=== PATIENT | male | born 1965 | race Caucasian/White ===

== ENCOUNTER 2016-11-16 20:23 | Emergency (ER) | payer MEDICARE ==
[~2016-11-16] VITALS: Ht 185.4 cm; Wt 68.0 kg
[~2016-11-16 20:23] MED LIST: SULF1TAB24 PO; TRAM-29 PO
[2016-11-16 21:52] LABS: BARBITURATES NEG (NEG); BENZODIAZEPINES NEG (NEG); CANNABINOIDS NEG (NEG); COCAINE POS (NEG); ETHANOL, URINE NEG (NEG); METHADONE NEG (NEG); OPIATES NEG (NEG); PHENCYCLIDINE NEG (NEG)
[2016-11-16 22:42] LABS: BASO # 0.1 x10^3/uL (0.0-0.2); BASO % 1 % (0-3); EOS % 4 % (0-3); HEMATOCRIT 34.6 % (39.0-53.0); HEMOGLOBIN 11.7 g/dL (13.0-17.5); LYMPH # 1.8 x10^3/uL (1.0-4.8); LYMPH % 19 % (24-48); MEAN CORPUSCULAR HEMOGLOBIN 30 pg (25-35); MEAN CORPUSCULAR HGB CONC 34 g/dL (31-37); MEAN CORPUSCULAR VOLUME 88 fL (79-100); MONO % 9 % (0-9); NEUT % 67 % (31-73); PLATELET COUNT 246 x10^3/uL (140-400); RED BLOOD COUNT 3.92 x10^6/uL (4.30-5.70); RED CELL DISTRIBUTION WIDTH 14.8 % (11.5-14.5); WHITE BLOOD COUNT 9.5 x10^3/uL (4.0-11.0)
[2016-11-16 23:02] VITALS: BP 110/65
[2016-11-16 23:06] LABS: CALCIUM 8.5 mg/dL (8.5-10.1); CREATININE 0.8 mg/dL (0.7-1.3); GFR 101.5; POTASSIUM 3.9 mmol/L (3.5-5.1)
[2016-11-16] MEDS ORDERED: KETOROLAC TROMETHAMINE 60 MG/2 ML SYRINGE. IM ONE (23:15)
[2016-11-17] MEDS ORDERED: IBUP-1060 PO (00:06)
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
--- NOTE | 2016-11-17 06:38 | EKG ---
[facility] [address] [place] [address] Test Date: 2016-11-16 Test Time: 22:34:41 Pat Name: TAYA ALEX Department: Room: Gender: M Electronics Research Engineer: : 1965 Requested By: JONNATHAN MUÑOZ Order Number: [id number] Reading MD: Measurements Intervals Brethren Rate: 59 P: 42 NE: 166 QRS: 82 QRSD: 106 T: 22 QT: 444 QTc: 440 Interpretive Statements SINUS RHYTHM RI6.01 Unconfirmed report No previous ECG available for comparison
== END 2016-11-17 00:29 | disposition home or self-care (01) ==
LOC: ER 20:23
DX: M54.5 Low back pain (principal); F15.10 Other stimulant abuse, uncomplicated; F14.10 Cocaine abuse, uncomplicated; F20.9 Schizophrenia, unspecified; Z88.0 Allergy status to penicillin
CPT/HCPCS: 36415; 80048; 85027; 93005; 99285; G0480; G0481

== ENCOUNTER 2016-11-30 05:42 | Emergency (ER) | payer MEDICARE ==
[~2016-11-30] VITALS: Ht 180.3 cm; Wt 68.0 kg
[~2016-11-30 05:42] MED LIST changes: +IBUP-1060 PO
[2016-11-30 06:01] VITALS: BP 121/94
[2016-11-30] MEDS ORDERED: CYCL10TA2 PO (06:29)
[2016-11-30] MEDS ORDERED: NAPR375T3 PO (06:29)
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
[2016-11-30] MEDS ORDERED: KETOROLAC TROMETHAMINE 60 MG/2 ML SYRINGE. IM ONE (07:00)
[2016-11-30] MEDS ORDERED: KETOROLAC TROMETHAMINE 30 MG/ML SYRINGE. IM ONE (07:00)
== END 2016-11-30 07:11 | disposition home or self-care (01) ==
LOC: ER 05:42
DX: M54.5 Low back pain (principal); M54.2 Cervicalgia; G89.29 Other chronic pain; F20.9 Schizophrenia, unspecified; F15.10 Other stimulant abuse, uncomplicated; F14.10 Cocaine abuse, uncomplicated; Z88.0 Allergy status to penicillin
CPT/HCPCS: 96372; 99283; J1885

== ENCOUNTER 2017-05-11 14:55 | Emergency (ER) | payer MEDICARE ==
[~2017-05-11] VITALS: Ht 185.4 cm; Wt 72.6 kg
[~2017-05-11 14:55] MED LIST changes: +CYCL10TA2 PO; +NAPR375T3 PO; -TRAM-29 PO; +TRAM-48 PO
[2017-05-11 15:22] VITALS: BP 145/68
[2017-05-11] MEDS ORDERED: HALO10TA PO (17:02)
[2017-05-11] MEDS ORDERED: RISP1TAB43 PO (17:02)
[2017-05-11] MEDS ORDERED: QUET50TA5 PO (17:03)
--- NOTE | 2017-05-11 17:03 | PHYS DOC ---
Past Medical History Past Medical History: Schizophrenia Past Surgical History: No Surgical History Alcohol Use: Occasionally Drug Use: Amphetamine, Cocaine, Methamphetamine Social History Narrative: clean x 2-3 months Adult General Chief Complaint Chief Complaint: PSYCH EVALUATION HPI HPI Patient is a 51 year old male with history of homelessness, chronic psychosis who presents with right medial forefoot pain times one month. Patient has a partially healing laceration to his right medial forefoot. He does not recall cause of injury. Denies foreign body sensation. The wound is closed and mostly healed without evidence of infection. Patient is also requesting medication refill. Patient takes Seroquel, Risperdal and Haldol has been off medications for 1-1/2 months. He denies SI, HI, hallucinations and delusions. No other acute symptoms or complaints. Patient is a current smoker, denies alcohol and substance abuse. Review of Systems Review of Systems Review symptoms as per history of present illness. All other review symptoms are negative. Allergies Allergies Allergies Coded Allergies Type Severity Reaction Last Updated Verified Penicillins Allergy Intermediate SEIZURE 06/25/16 Yes Physical Exam Physical Exam Constitutional: Well developed, unkempt, poor hygiene [] HENT: Normocephalic, atraumatic, bilateral external ears normal, oropharynx moist, no oral exudates, nose normal. [] Eyes: PERRLA, EOMI, conjunctiva normal, no discharge. [] Neck: Normal range of motion, no tenderness, supple, no stridor. [] Cardiovascular:Heart rate regular rhythm, no murmur [] Lungs & Thorax: Bilateral breath sounds clear to auscultation [] Abdomen: Bowel sounds normal, soft, no tenderness, no masses, no pulsatile masses. [] Skin: Warm, dry, no erythema, no rash. [] Back: No tenderness, no CVA tenderness. [] Extremities: Right forefoot, partially healed laceration right medial forefoot without evidence of infection or palpable foreign body minimal soft tissue tenderness. [] Neurologic: Alert and oriented X 3, normal motor function, normal sensory function, no focal deficits noted. [] Psychologic: Affect normal, no HI/SI/hallucinations, paranoia or delusions [] Current Patient Data Vital Signs Vital Signs Date Time Temp Pulse Resp B/P (MAP) Pulse Ox O2 Delivery O2 Flow Rate FiO2 05/11/17 15:22 98.4 70 18 145/68 (93) 98 Room Air 98.4 EKG EKG [] Radiology/Procedures Radiology/Procedures [X-ray right foot: No evidence of foreign body] Course & Med Decision Making Course & Med Decision Making Pertinent Labs and Imaging studies reviewed. (See chart for details) [Patient initially presented with chronic right foot pain. No evidence of infection or retained foreign body. Patient is homeless and suspect symptoms are largely related to walking on feet all day. In the ED, patient did request occasion refill for his psychiatric medications. Courtesy refill provided for Risperdal, Seroquel and Haldol until specified by patient. [facility] have [facility] for follow-up and is agreeable to ER discharge and follow-up plan.] Dragon Disclaimer Dragon Disclaimer This electronic medical record was generated, in whole or in part, using a voice recognition dictation system. Departure Departure Impression: Primary Impression: Foot pain, right Additional Impression: Medication refill Disposition: 01 HOME, SELF-CARE Condition: LEFT WITHOUT BEING SEEN Referrals: NO PCP (PCP) Additional Instructions: Please refill Risperdal and Seroquel and Haldol prescriptions and take medications only as prescribed. Take 650 mg of Tylenol 3 times daily for right foot pain and wear tow pair of clean socks with shoes. Follow up with community mental health services. Problem Qualifiers BRANDON ESCAMILLA DO May 11, 2017 17:03
--- NOTE | 2017-05-12 08:30 | RAD ---
Exam performed: Right foot 3 views. Clinical Indication: Trauma, puncture wound and laceration on the plantar surface of the foot. Date of Service:05/11/17. Comparison :No priors Findings: PA, oblique and lateral radiographs of the foot reveal the osseous structures to be intact and well aligned. The joint spaces are well preserved and the articular margins are smooth. Impression: Radiographically normal osseous structures of the right foot.
== END 2017-05-11 17:27 | disposition home or self-care (01) ==
LOC: ER 14:55
DX: M79.671 Pain in right foot (principal); Z76.0 Encounter for issue of repeat prescription; F20.9 Schizophrenia, unspecified; Z88.0 Allergy status to penicillin
CPT/HCPCS: 73630; 99284

== ENCOUNTER 2017-05-11 22:43 | Emergency (ER) | payer MEDICARE ==
[~2017-05-11] VITALS: Ht 188 cm; Wt 72.6 kg
[~2017-05-11 22:43] MED LIST changes: +HALO10TA PO; +QUET50TA5 PO; +RISP1TAB43 PO
[2017-05-11 22:58] VITALS: BP 137/67
--- NOTE | 2017-05-11 23:08 | PHYS DOC ---
Past Medical History Past Medical History: Schizophrenia Past Surgical History: No Surgical History Alcohol Use: Occasionally Drug Use: Amphetamine, Cocaine, Methamphetamine Adult General Chief Complaint Chief Complaint: LACERATION/AVULSION [facility] HPI Patient is a 51 year old male presents to the emergency department with complaints of dry cracked feet. Patient states that he has dry skin and cracking skin on the bottom of his right foot. He states it's worse since he has had to wear his shoes at work. He states she is but is waiting for payday. He is in the emergency department today seeking a "salve, Band-Aid and some Tylenol". Review of Systems Review of Systems Constitutional: Denies fever or chills [] Eyes: Denies change in visual acuity, redness, or eye pain [] HENT: Denies nasal congestion or sore throat [] Respiratory: Denies cough or shortness of breath [] Cardiovascular: No additional information not addressed in HPI [] GI: Denies abdominal pain, nausea, vomiting, bloody stools or diarrhea [] : Denies dysuria or hematuria [] Musculoskeletal: Denies back pain or joint pain [] Integument: Dry skin with fissure Neurologic: Denies headache, focal weakness or sensory changes [] Endocrine: Denies polyuria or polydipsia [] Allergies Allergies Allergies Coded Allergies Type Severity Reaction Last Updated Verified Penicillins Allergy Intermediate SEIZURE 06/25/16 Yes Physical Exam Physical Exam Constitutional: Well developed, well nourished, no acute distress, non-toxic appearance. [] Cardiovascular:Heart rate regular rhythm, no murmur [] Lungs & Thorax: Bilateral breath sounds clear to auscultation [] Skin: Warm, dry, no erythema, no rash. Right foot, plantar aspect, beneath the fifth toe, 2 cm superficial fissure. There is no surrounding erythema. No discharge from the wound. Is nontender to palpate. [] Extremities: No tenderness, no cyanosis, no clubbing, ROM intact, no edema. [] Neurologic: Alert and oriented X 3, normal motor function, normal sensory function, no focal deficits noted. [] Psychologic: Affect normal, judgement normal, mood normal. [] EKG EKG [] Radiology/Procedures Radiology/Procedures [] Course & Med Decision Making Course & Med Decision Making Pertinent Labs and Imaging studies reviewed. (See chart for details) [] Dragon Disclaimer Dragon Disclaimer This electronic medical record was generated, in whole or in part, using a voice recognition dictation system. Departure Departure Impression: Primary Impression: Fissure in skin of foot Disposition: 01 HOME, SELF-CARE Condition: STABLE Referrals: NO PCP (PCP) [facility] Patient Instructions: Skin Tear Care, Wound Care, [id number] Additional Instructions: Keep area clean and dry. Neosporin [id number] as needed. Tylenol and/or Motrin as labeled and is indicated for symptom management. WAYNE MULLER SURVEYOR MINE May 11, 2017 23:08
[2017-05-11] MEDS ORDERED: ACETAMINOPHEN 500 MG TABLET PO ONE (23:15)
[2017-05-11] MEDS ORDERED: NEOMY/BACITR/POLYMYXIN OINT PACKET. TP ONE (23:15)
== END 2017-05-11 23:54 | disposition home or self-care (01) ==
LOC: ER 22:43
DX: R23.4 Changes in skin texture (principal); F20.9 Schizophrenia, unspecified; Z88.0 Allergy status to penicillin
CPT/HCPCS: 99283

== ENCOUNTER 2017-06-06 23:16 | Emergency (ER) | payer MEDICARE ==
[~2017-06-06 23:16] MED LIST changes: +NAPR-695 PO; -NAPR375T3 PO
== END 2017-06-06 23:32 | disposition left against medical advice (07) ==
LOC: ER 23:16
DX: M79.673 Pain in unspecified foot (principal); Z88.0 Allergy status to penicillin; Z53.21 Procedure and treatment not carried out due to patient leaving prior to being seen by health care provider

== ENCOUNTER 2017-08-07 10:54 | Emergency (ER) | payer MEDICARE ==
[~2017-08-07] VITALS: Ht 175.3 cm; Wt 72.6 kg
[2017-08-07 10:54] VITALS: BP 149/94
[2017-08-07] MEDS ORDERED: QUET50TA5 PO ×2 (11:02→11:27)
[2017-08-07] MEDS ORDERED: RISP1TAB43 PO (11:02)
[2017-08-07] MEDS ORDERED: risperiDONE 1 MG TABLET. PO STA (11:12)
[2017-08-07] MEDS ORDERED: traZODone 50 MG TABLET. PO STA (11:12)
--- NOTE | 2017-08-07 11:12 | PHYS DOC ---
Past Medical History Past Medical History: Schizophrenia Past Surgical History: No Surgical History Alcohol Use: None Drug Use: None Adult General Chief Complaint Chief Complaint: MEDICATION REFILL HPI HPI Patient is a 51 year old male with history of schizophrenia who presents today requesting medication to take home with him. Patient states he takes 1 mg of Risperdal and 50 mg of Seroquel at night. He states he has been out of the both medications for 4 months but would like to get back on the medications today. He is requesting 4 day supply of the medication from the hospital stating he can not afford to buy the medications until Wednesday which is four days out. Denies any suicidal or homicidal ideation. Review of Systems Review of Systems Constitutional: Denies fever or chills [] Eyes: Denies change in visual acuity, redness, or eye pain [] HENT: Denies nasal congestion or sore throat [] Respiratory: Denies cough or shortness of breath [] Cardiovascular: No additional information not addressed in HPI [] GI: Denies abdominal pain, nausea, vomiting, bloody stools or diarrhea [] : Denies dysuria or hematuria [] Musculoskeletal: Denies back pain or joint pain [] Integument: Denies rash or skin lesions [] Neurologic: Denies headache, focal weakness or sensory changes [] Psych: hx of schizophrenia. All other systems were reviewed and found to be within normal limits, except as documented in this note. Allergies Allergies Allergies Coded Allergies Type Severity Reaction Last Updated Verified Penicillins Allergy Intermediate SEIZURE 06/25/16 Yes Physical Exam Physical Exam Constitutional: Well developed, well nourished, no acute distress, non-toxic appearance. [] HENT: Normocephalic, atraumatic, bilateral external ears normal, oropharynx moist, no oral exudates, nose normal. [] Eyes: PERRLA, EOMI, conjunctiva normal, no discharge. [] Neck: Normal range of motion, no tenderness, supple, no stridor. [] Cardiovascular:Heart rate regular rhythm, no murmur [] Lungs & Thorax: Bilateral breath sounds clear to auscultation [] Abdomen: Bowel sounds normal, soft, no tenderness, no masses, no pulsatile masses. [] Skin: Warm, dry, no erythema, no rash. [] Back: No tenderness, no CVA tenderness. [] Extremities: No tenderness, no cyanosis, no clubbing, ROM intact, no edema. [] Neurologic: Alert and oriented X 3, normal motor function, normal sensory function, no focal deficits noted. [] Psychologic: Affect normal, judgement normal, mood normal. [] Current Patient Data Vital Signs Vital Signs Date Time Temp Pulse Resp B/P (MAP) Pulse Ox O2 Delivery O2 Flow Rate FiO2 08/07/17 10:54 98.1 83 16 149/94 (112) 98 Room Air 98.1 EKG EKG [] Radiology/Procedures Radiology/Procedures [] Course & Med Decision Making Course & Med Decision Making Pertinent Labs and Imaging studies reviewed. (See chart for details) This is a 51-year-old male patient presenting to the ED today requesting 1 mg of Risperdal and 50 mg of Seroquel four day supply from the hospital. Patient has not taken these medications for the last 4 months but states he would like to get back on the medications. Patient denies any suicidal homicidal ideations I called our pharmacy, they stated they cannot dispense medications for home use because this is direct competition with retail pharmacies and they're not allowed to be in competition with retail pharmacies hence they can not dispense the medication. Prescription was given to patient. He was encouraged to follow up with [facility]. Inna Disclaimer Inna Disclaimer This electronic medical record was generated, in whole or in part, using a voice recognition dictation system. Departure Departure Impression: Primary Impression: Medication refill Disposition: HOME, SELF-CARE Condition: STABLE Referrals: NO PCP (PCP) Contact [facility] on Wednesday and follow up [phone] Patient Instructions: Schizophrenia Additional Instructions: You were seen with a request for medication refill for Seroquel and trazodone. Our hospital pharmacy cannot dispense these medications for home use due to rules and regulations governing hospital pharmacies. We wrote you 2 prescriptions try and find money to buy the medications. Also follow-up with [facility] on Wednesday. Scripts Quetiapine Fumarate (SEROQUEL) 50 Mg Tablet 1 TAB PO QHS, #7 TAB Prov: MUTUNGA,JAYNE CHASSIS MECHANIC 08/07/17 Risperidone (RISPERIDONE) 1 Mg Tablet 1 TAB PO QHS, #7 TAB 0 Refills Prov: MUTUNGA,JAYNE CHASSIS MECHANIC 08/07/17 JAYNE NAJERA CHASSIS MECHANIC Aug 07, 2017 11:12
[2017-08-07] MEDS ORDERED: RISP1TAB3 PO (11:27)
== END 2017-08-07 11:37 | disposition home or self-care (01) ==
LOC: ER 10:54
DX: Z76.0 Encounter for issue of repeat prescription (principal); F20.9 Schizophrenia, unspecified; Z88.0 Allergy status to penicillin
CPT/HCPCS: 99283

== ENCOUNTER 2017-08-12 19:17 | Emergency (ER) | payer MEDICARE ==
[2017-08-12 19:17] VITALS: BP 124/72
[~2017-08-12 19:17] MED LIST changes: +RISP1TAB3 PO
--- NOTE | 2017-08-12 19:25 | PHYS DOC ---
Past Medical History Past Medical History: Schizophrenia Additional Past Medical Histor: CHRONIC NECK/BACK PAIN Past Surgical History: Other Additional Past Surgical Histo: L LEG Alcohol Use: Occasionally Drug Use: None Adult General Chief Complaint Chief Complaint: HEADACHE HPI HPI The patient presented by EMS. RN initiated triage process & he eloped from the department. Before I could evaluate the patient myself, I was informed that he had departed from the premises. I did not interact with him, obtain history, or perform exam. Allergies Allergies Allergies Coded Allergies Type Severity Reaction Last Updated Verified Penicillins Allergy Intermediate SEIZURE 06/25/16 Yes EKG EKG [] Radiology/Procedures Radiology/Procedures [] Course & Med Decision Making Course & Med Decision Making Pertinent Labs and Imaging studies reviewed. (See chart for details) [] Dragon Disclaimer Dragon Disclaimer This electronic medical record was generated, in whole or in part, using a voice recognition dictation system. Departure Departure Disposition: 01 LEFT WITHOUT BEING SEEN Referrals: NO PCP (PCP) ORLIN AMBRIZ MD Aug 12, 2017 19:25
== END 2017-08-12 19:38 | disposition left against medical advice (07) ==
LOC: ER 19:17
DX: R51 Headache (principal); G89.29 Other chronic pain; F20.9 Schizophrenia, unspecified; Z53.21 Procedure and treatment not carried out due to patient leaving prior to being seen by health care provider; Z88.0 Allergy status to penicillin

== ENCOUNTER 2017-09-21 06:52 | Emergency (ER) | payer MEDICARE ==
[2017-09-21] MEDS: IBUPROFEN 800 MG TABLET. PO (07:49)
[2017-09-21 08:04] LABS: NEGATIVE OBC STREP NEG; POSITIVE OBC STREP POS
[2017-09-21 08:10] LABS: INFLUENZA A PATIENT NEGATIVE (NEGATIVE); INFLUENZA B PATIENT NEGATIVE (NEGATIVE); OBC FLU VALID
[2017-09-21 08:38] LABS: BILIRUBIN,URINE NEGATIVE (NEG); CLARITY,URINE CLEAR; COLOR,URINE YELLOW; GLUCOSE,URINE NEGATIVE (NEG); NITRITE,URINE NEGATIVE (NEG); PROTEIN,URINE NEGATIVE (NEG-TRACE)
[2017-09-21 08:51] LABS: BACTERIA,URINE FEW /HPF (0-FEW)
[2017-09-21 08:52] LABS: RBC,URINE OCC /HPF (0-2)
== END 2017-09-21 09:46 | disposition home or self-care (01) ==
LOC: ER 06:52
DX: J06.9 Acute upper respiratory infection, unspecified (principal); M54.9 Dorsalgia, unspecified; G89.29 Other chronic pain; Z88.0 Allergy status to penicillin
CPT/HCPCS: 81001; 87070; 87804; 87804-59; 87880; 99284

== ENCOUNTER 2017-10-01 20:30 | Emergency (ER) | payer MEDICARE ==
[2017-10-01] MEDS: IPRATRPIUM/ALBUTEROL 0.5/2.5MG 3 ML NEBU. NEB (21:27)
[2017-10-01] MEDS: predniSONE 20 MG TABLET PO (21:30)
[2017-10-01] MEDS: CIPROFLOXACIN HCL 250 MG TABLET. PO (21:30)
[2017-10-01 22:01] LABS: INFLUENZA A PATIENT NEGATIVE (NEGATIVE); INFLUENZA B PATIENT NEGATIVE (NEGATIVE); OBC FLU VALID
== END 2017-10-01 22:37 | disposition home or self-care (01) ==
LOC: ER 20:30
DX: J40 Bronchitis, not specified as acute or chronic (principal); F17.210 Nicotine dependence, cigarettes, uncomplicated; F20.9 Schizophrenia, unspecified; I10 Essential (primary) hypertension; G89.29 Other chronic pain; Z88.0 Allergy status to penicillin
CPT/HCPCS: 71046; 87804; 87804-59; 93005; 94640; 99285-25; J7512; J7620

== ENCOUNTER 2017-12-20 19:24 | Emergency (ER) | payer MEDICARE | END 2017-12-20 20:40 | disposition home or self-care (01) | LOC: ER 20:40 | DX: F15.10 Other stimulant abuse, uncomplicated (principal); F14.10 Cocaine abuse, uncomplicated; F20.9 Schizophrenia, unspecified; I10 Essential (primary) hypertension; F17.210 Nicotine dependence, cigarettes, uncomplicated; Z88.0 Allergy status to penicillin | CPT/HCPCS: 99284 ==

== ENCOUNTER 2018-06-02 23:12 | Emergency (ER) | payer MEDICARE ==
[~2018-06-02] VITALS: Ht 185.4 cm; Wt 72.6 kg
[~2018-06-02 23:12] MED LIST changes: +AZIT250T6 PO; +GUAI600T47 PO; +PRED20TA PO; +PROAIR HFA8.5 GM INH
[2018-06-02 23:45] VITALS: BP 130/74
[2018-06-03] MEDS ORDERED: TOLNAFTATE 1% TOPICAL SPRAY POWDER 133GM CAN. TP SCH (00:45)
--- NOTE | 2018-06-03 00:49 | PHYS DOC ---
Past Medical History Past Medical History: Hypertension, Schizophrenia, Unknown Additional Past Medical Histor: CHRONIC NECK/BACK PAIN Past Surgical History: Other Additional Past Surgical Histo: unknown Alcohol Use: None Drug Use: None Adult General Chief Complaint Chief Complaint: SKIN RASH/ABSCESS [facility] HPI Patient is a 52 year old male who presents with a rash to bilateral feet. The patient states he is homeless and has not been able to care for his feet. The patient states it isn't itchy rash and he has some cracking noted to the bottom of his feet. The patient also states that he had an injury to his testicles years ago and is requesting Viagra. I explained that I would not be able to prescribed that out of the emergency department. Review of Systems Review of Systems Constitutional: Denies fever or chills [] Respiratory: Denies cough or shortness of breath [] Cardiovascular: No additional information not addressed in HPI [] GI: Denies abdominal pain, nausea, vomiting, bloody stools or diarrhea [] : Denies dysuria or hematuria [] Musculoskeletal: Denies back pain or joint pain [] Integument: See history of present illness Neurologic: Denies headache, focal weakness or sensory changes [] Endocrine: Denies polyuria or polydipsia [] All other systems were reviewed and found to be within normal limits, except as documented in this note. Current Medications Current Medications Current Medications Medications (Trade) Dose Ordered Sig/Haylee Start Time Stop Time Status Last Admin Dose Admin Tolnaftate (Tinactin) 1 shannan BID 06/03/18 00:45 06/03/18 01:06 DC 06/03/18 00:45 1 SHANNAN Allergies Allergies Allergies Coded Allergies Type Severity Reaction Last Updated Verified Penicillins Allergy Intermediate SEIZURE 06/25/16 Yes Physical Exam Physical Exam Constitutional: Well developed, well nourished, no acute distress, non-toxic appearance. [] Cardiovascular:Heart rate regular rhythm, no murmur [] Lungs & Thorax: Bilateral breath sounds clear to auscultation [] Abdomen: Bowel sounds normal, soft, no tenderness, no masses, no pulsatile masses. [] Skin: Erythematous rash with cracking noted to his feet, excoriation noted, no sign of bacterial infection noted Back: No tenderness, no CVA tenderness. [] Extremities: No tenderness, no cyanosis, no clubbing, ROM intact, no edema. [] Neurologic: Alert and oriented X 3, normal motor function, normal sensory function, no focal deficits noted. [] Psychologic: Affect normal, judgement normal, mood normal. [] Current Patient Data Vital Signs Vital Signs Date Time Temp Pulse Resp B/P (MAP) Pulse Ox O2 Delivery O2 Flow Rate FiO2 06/02/18 23:45 98.8 99 18 130/74 (92) 98 Room Air 98.8 EKG EKG [] Radiology/Procedures Radiology/Procedures [] Course & Med Decision Making Course & Med Decision Making Pertinent Labs and Imaging studies reviewed. (See chart for details) []The patient was treated in the emergency department with Tinactin. He is to follow-up with a clinic for further evaluation. Dragon Disclaimer Differential Dynamics Disclaimer This electronic medical record was generated, in whole or in part, using a voice recognition dictation system. Departure Departure Impression: Primary Impression: Athletes foot Disposition: HOME, SELF-CARE Condition: STABLE Referrals: NO PCP (PCP) Patient Instructions: Athlete's Foot Additional Instructions: Follow-up with your primary care provider for further evaluation of your athlete 's foot. You may use [id number] Tinactin to clearing your symptoms. Follow -up with urology for your request for Viagra. Attending Signature Attending Signature I have reviewed the PA/LITHARGE SUPERVISOR's note and plan of care. I was available for consultation as needed during the patient's visit in the emergency department. I agree with the clinical impression, plan, and disposition. MONIQUE CHIRINOS APRN Jun 03, 2018 00:49 MAGDALENO ESQUIVEL DO Jun 05, 2018 03:43
== END 2018-06-03 01:06 | disposition home or self-care (01) ==
LOC: ER 23:12
DX: B35.3 Tinea pedis (principal); I10 Essential (primary) hypertension; F20.9 Schizophrenia, unspecified; G89.29 Other chronic pain; Z88.0 Allergy status to penicillin
CPT/HCPCS: 99282

== ENCOUNTER 2019-08-31 16:37 | Emergency (ER) | payer MEDICARE ==
[~2019-08-31] VITALS: Ht 180.3 cm; Wt 71.7 kg
[~2019-08-31 16:37] MED LIST changes: +ALBU2.5V8 INH; -PROAIR HFA8.5 GM INH
[2019-08-31 16:40] VITALS: BP 132/76
[2019-08-31] MEDS ORDERED: CEPH-264 PO (16:57)
[2019-08-31] MEDS ORDERED: HYDR50TA PO (16:57)
[2019-08-31] MEDS ORDERED: CLOT12CR2 TP (16:57)
--- NOTE | 2019-08-31 17:29 | PHYS DOC ---
Past Medical History Past Medical History: No Pertinent History Additional Past Medical Histor: CHRONIC NECK/BACK PAIN Past Surgical History: No Surgical History Additional Past Surgical Histo: unknown Alcohol Use: Heavy Drug Use: Methamphetamine Adult General Chief Complaint Chief Complaint: HAND PROBLEM HPI HPI Patient is a 53 year old male with history of schizophrenia and homelessness who presents with dermatitis both hands. It isn't clear how long patient has dermatitis. He checked and earlier today with this complaint but ended up le aving the ED to smoke and not returning until this evening. Patient is currently residing at the local homeless assisted. He has had previous hospitalizations of the [facility]. He is currently prescribed Risperdal and Seroquel but is noncompliant with treatment. M, the patient is disheveled, edentulous, with bizarre and disorganized speech. He has dermatitis involving both hands extending to proximal wrist. Numerous punctate abrasions from itching with minimal scaling of skin. There is good cap refill and sensation throughout all digits. He does not be in significant pain, appears to have some discomfort secondary to itching.] Review of Systems Review of Systems ROS as per HPI. All other systems were reviewed and found to be within normal limits, except as documented in this note. Allergies Allergies Allergies Coded Allergies Type Severity Reaction Last Updated Verified Penicillins Allergy Intermediate SEIZURE 06/25/16 Yes Physical Exam Physical Exam Constitutional: Well developed, well nourished, disheveled, covered in glitter[] HENT: Normocephalic, atraumatic, bilateral external ears normal, oropharynx moist, edentulous/ [] Eyes: PERRLA, EOMI, conjunctiva normal, no discharge. [] Neck: Normal range of motion, no tenderness. [] Cardiovascular:Heart rate regular rhythm, no murmur [] Lungs & Thorax: Bilateral breath sounds clear to auscultation [] Abdomen: Bowel sounds normal, soft, no tenderness, no masses, no pulsatile masses. [] Skin: Dermatitis involving both hands extending to proximal wrist. Numerous punctate abrasions from itching with minimal scaling of skin. There is good cap refill and sensation throughout all digits. [] Back: No tenderness, no CVA tenderness. [] Extremities: No tenderness, no cyanosis, no clubbing, ROM intact, no edema. [] Neurologic: Alert and oriented X worsening, normal motor function, normal sensory function, no focal deficits noted. [] Psychologic: Normal behavior and bizarre speech. [] EKG EKG [] Radiology/Procedures Radiology/Procedures [] Course & Med Decision Making Course & Med Decision Making Pertinent Labs and Imaging studies reviewed. (See chart for details) [Hand dermatitis, NOS. Will tx with PCP follow up. ] Dragon Disclaimer Dragon Disclaimer This electronic medical record was generated, in whole or in part, using a voice recognition dictation system. Departure Departure Impression: Primary Impression: Hand dermatitis Disposition: HOME/RESIDENCE PRIOR TO ADM Condition: GOOD Patient Instructions: Hand Dermatitis, [id number] Additional Instructions: Please avoid sleeping outdoors. Apply Lotrimin cream OTC and take oral antibiotics and antihistamine medication as directed. Follow-up with local primary care provider in the next 3-5 days for reevaluation. Scripts Hydroxyzine Hcl (HYDROXYZINE HCL) 50 Mg Tablet 50 MG PO TID, #10 TAB Prov: BRANDON ESCAMILLA DO 08/31/19 Cephalexin (KEFLEX) 500 Mg Capsule 1 CAP PO TID for 10 Days, #30 CAP 0 Refills Prov: BRANDON ESCAMILLA DO 08/31/19 Clotrimazole (LOTRIMIN AF) 12 Gm Cream..g. 1 ARANZA TP BID, #24 GM 1 Refill Prov: BRANDON ESCAMILLA DO 08/31/19 BRANDON ESCAMILLA DO Aug 31, 2019 17:29
== END 2019-08-31 17:19 | disposition home or self-care (01) ==
LOC: ER 16:37
DX: L30.8 Other specified dermatitis (principal); Z59.0 Homelessness; F20.9 Schizophrenia, unspecified; G89.29 Other chronic pain; F10.20 Alcohol dependence, uncomplicated; Y90.9 Presence of alcohol in blood, level not specified; Z88.0 Allergy status to penicillin
CPT/HCPCS: 99283

== ENCOUNTER → 2020-03-26 | Emergency (ER) | payer MEDICARE ==
[~2020-03-26] MED LIST changes: +CEPH-264 PO; +CLOT12CR2 TP; +ERYTHROMYCIN 0.5% OPHTH OINTMENT 1GM TUBE. ONE; +HYDR50TA PO; +LIDOCAINE 1% Multi-Dose 20 ML VIAL. ONE; +LIDOCAINE 1% PF 5 ML VIAL. INJ ONE
--- NOTE | 2020-03-26 18:27 | PHYS DOC ---
Past Medical History Past Medical History: Schizophrenia Additional Past Medical Histor: CHRONIC NECK/BACK PAIN Past Surgical History: No Surgical History Additional Past Surgical Histo: unknown Smoking Status: Current Every Day Smoker Alcohol Use: Heavy Drug Use: Methamphetamine General Adult EDM: Chief Complaint: MULTIPLE COMPLAINTS HPI: HPI: Patient is a 54 year [id number] male presents for evaluation of splinter under his left index finger patient states splinter is been there for the last 2 or 3 days. Patient complains of associated pain and swelling. Review of Systems: Review of Systems: Constitutional: Denies fever or chills. [] Eyes: As it of conjunctivitis HENT: Denies nasal congestion or sore throat. [] Respiratory: Denies cough or shortness of breath. [] Cardiovascular: Denies chest pain or edema. [] GI: Denies abdominal pain, nausea, vomiting, bloody stools or diarrhea. [] : Denies dysuria. [] Musculoskeletal: Denies back pain or joint pain. [] Integument: Positive paronychia positive foreign body in the nail Neurologic: Denies headache, focal weakness or sensory changes. [] Endocrine: Denies polyuria or polydipsia. [] Lymphatic: Denies swollen glands. [] Psychiatric: Denies depression or anxiety. [] Heart Score: Risk Factors: Risk Factors: DM, Current or recent (<one month) smoker, HTN, HLP, family history of CAD, obesity. Risk Scores: Score 0 - 3: 2.5% MACE over next 6 weeks - Discharge Home Score 4 - 6: 20.3% MACE over next 6 weeks - Admit for Clinical Observation Score 7 - 10: 72.7% MACE over next 6 weeks - Early Invasive Strategies Current Medications: Current Medications Medications (Trade) Dose Ordered Sig/Haylee Start Time Stop Time Status Last Admin Dose Admin Erythromycin (Romycin) 1 inch STK-MED ONCE 03/26/20 04:36 03/26/20 13:26 DC Lidocaine HCl (Lidocaine 1% 20ml Vial) 20 ml STK-MED ONCE 03/26/20 03:58 03/26/20 13:25 DC Lidocaine HCl (Xylocaine-Mpf 1% 5ml Vial) 5 ml 1X ONCE 03/26/20 03:45 03/26/20 08:06 DC Allergies: Allergies: Allergies Coded Allergies Type Severity Reaction Last Updated Verified Penicillins Allergy Intermediate SEIZURE 06/25/16 Yes Physical Exam: PE: Constitutional: Well developed, well nourished, no acute distress, non-toxic appearance. [] HENT: Normocephalic, atraumatic, bilateral external ears normal, oropharynx moist, no oral exudates, nose normal. [] Eyes: PERRLA, EOMI, conjunctiva normal, drainage right] Neck: Normal range of motion, no tenderness, supple, no stridor. [] Cardiovascular:Heart rate regular rhythm, no murmur [] Lungs & Thorax: Bilateral breath sounds clear to auscultation [] Abdomen: Bowel sounds normal, soft, no tenderness, no masses, no pulsatile masses. [] Skin: Warm, dry, erythema swelling consistent with a paronychia left index finger. Patient has what appears to be pus under the nail of his index finger there was a wooden splinter just underneath the nail. Back: No tenderness, no CVA tenderness. [] Extremities: No tenderness, no cyanosis, no clubbing, ROM intact, no edema. [] Neurologic: Alert and oriented X 3, normal motor function, normal sensory function, no focal deficits noted. [] Psychologic: Affect normal, judgement normal, mood normal. [] EKG: EKG: [] Radiology/Procedures: Radiology/Procedures: [] Impression: Patient underwent a digital block with lidocaine 1% approximately 5 cc total. Once successful anesthesia was achieved. Clamps were used to remove wooden splinter from under left index finger nail. 11 blade was used to make an incision along the cuticle. Large amount of pus was expressed. Patient tolerated the procedure Course & Med Decision Making: Course & Med Decision Making Pertinent Labs and Imaging studies reviewed. (See chart for details) [] Dragon Disclaimer: Dragon Disclaimer: This electronic medical record was generated, in whole or in part, using a voice recognition dictation system. Departure Departure Impression: Primary Impression: Skin infection Additional Impressions: Conjunctivitis Paronychia Disposition: 01 HOME, SELF-CARE Condition: STABLE Referrals: NO PCP (PCP) Patient Instructions: Conjunctivitis, Chemical, Paronychia Justicifation of Admission Dx: Justifications for Admission: Justification of Admission Dx: N/A ALEXANDRA CLAUDIO DO Mar 26, 2020 18:27
== END ==
LOC: ER 03:32
DX: L03.012 Cellulitis of left finger (principal); L08.9 Local infection of the skin and subcutaneous tissue, unspecified; H10.9 Unspecified conjunctivitis; F20.9 Schizophrenia, unspecified; G89.29 Other chronic pain; F17.200 Nicotine dependence, unspecified, uncomplicated; F19.90 Other psychoactive substance use, unspecified, uncomplicated; F10.10 Alcohol abuse, uncomplicated; Z88.0 Allergy status to penicillin
CPT/HCPCS: 10061; 99284

== ENCOUNTER 2020-04-10 02:39 | Emergency (ER) | payer MEDICARE ==
[~2020-04-10] VITALS: Ht 170.2 cm; Wt 65.0 kg
[~2020-04-10 02:39] MED LIST changes: -ERYTHROMYCIN 0.5% OPHTH OINTMENT 1GM TUBE. ONE; -LIDOCAINE 1% Multi-Dose 20 ML VIAL. ONE; -LIDOCAINE 1% PF 5 ML VIAL. INJ ONE
[2020-04-10 02:50] VITALS: BP 124/64
--- NOTE | 2020-04-10 03:00 | PHYS DOC ---
Past Medical History Past Medical History: Schizophrenia Additional Past Medical Histor: CHRONIC NECK/BACK PAIN Past Surgical History: No Surgical History Additional Past Surgical Histo: unknown Smoking Status: Current Every Day Smoker Alcohol Use: Heavy Drug Use: Methamphetamine General Adult EDM: Chief Complaint: MEDICATION REFILL HPI: HPI: Patient is a 54-year-old male who is homeless who presents looking for a month supply of his psychiatric medication including Seroquel Abilify and lorazepam. He states he does not want psychiatric help he is trying to circumvent the mental health facilities looking for a primary care doctor. He denies any suicidal or homicidal ideation. [] Review of Systems: Review of Systems: Constitutional: Denies fever or chills. [] Eyes: Denies change in visual acuity. [] HENT: Denies nasal congestion or sore throat. [] Respiratory: Denies cough or shortness of breath. [] Cardiovascular: Denies chest pain or edema. [] GI: Denies abdominal pain, nausea, vomiting, bloody stools or diarrhea. [] : Denies dysuria. [] Musculoskeletal: Denies back pain or joint pain. [] Integument: Denies rash. [] Neurologic: Denies headache, focal weakness or sensory changes. [] Endocrine: Denies polyuria or polydipsia. [] Lymphatic: Denies swollen glands. [] Psychiatric: Depression and anxiety. [] Heart Score: Risk Factors: Risk Factors: DM, Current or recent (<one month) smoker, HTN, HLP, family history of CAD, obesity. Risk Scores: Score 0 - 3: 2.5% MACE over next 6 weeks - Discharge Home Score 4 - 6: 20.3% MACE over next 6 weeks - Admit for Clinical Observation Score 7 - 10: 72.7% MACE over next 6 weeks - Early Invasive Strategies Allergies: Allergies: Allergies Coded Allergies Type Severity Reaction Last Updated Verified Penicillins Allergy Intermediate SEIZURE 06/25/16 Yes Physical Exam: PE: Constitutional: Well developed, well nourished, disheveled but no distress [] HENT: Normocephalic, atraumatic, bilateral external ears normal, oropharynx moist, no oral exudates, nose normal. [] Eyes: PERRLA, EOMI, conjunctiva normal, no discharge. [] Neck: Normal range of motion, no tenderness, supple, no stridor. [] Cardiovascular:Heart rate regular rhythm, no murmur [] Lungs & Thorax: Bilateral breath sounds clear to auscultation [] Abdomen: Bowel sounds normal, soft, no tenderness, no masses, no pulsatile masses. [] Skin: Warm, dry, no erythema, no rash. [] Back: No tenderness, no CVA tenderness. [] Extremities: No tenderness, no cyanosis, no clubbing, ROM intact, no edema. [] Neurologic: Alert and oriented X 3, normal motor function, normal sensory function, no focal deficits noted. [] Psychologic: Very unusual affect [] EKG: EKG: [] Radiology/Procedures: Radiology/Procedures: [] Course & Med Decision Making: Course & Med Decision Making Pertinent Labs and Imaging studies reviewed. (See chart for details) [ED course: Evaluation reveals a 54-year-old male that wants his psychiatric medications refilled. I offered to call the psychiatric assessment team however the patient refused to be evaluated by the psychiatric assessment team and said he would rather go home. He is not a threat to himself or others so I believe this is the best option at this time. Patient states that he has the appropria te resources to find psychiatric care if he decides that is what he wants to do.] Dragon Disclaimer: Inna Disclaimer: This electronic medical record was generated, in whole or in part, using a voice recognition dictation system. Departure Departure Impression: Primary Impression: Mixed anxiety and depressive disorder Disposition: 01 HOME, SELF-CARE Condition: STABLE Referrals: NO PCP (PCP) Patient Instructions: Anxiety and Panic Attacks Justicifation of Admission Dx: Justifications for Admission: Justification of Admission Dx: GENE Berrios DO Apr 10, 2020 03:00
== END 2020-04-10 03:10 | disposition home or self-care (01) ==
LOC: ER 02:39
DX: F41.8 Other specified anxiety disorders (principal); F32.9 Major depressive disorder, single episode, unspecified; F20.9 Schizophrenia, unspecified; G89.29 Other chronic pain; F17.200 Nicotine dependence, unspecified, uncomplicated; F10.10 Alcohol abuse, uncomplicated; F19.90 Other psychoactive substance use, unspecified, uncomplicated; Z59.0 Homelessness
CPT/HCPCS: 99281

== ENCOUNTER 2020-04-21 07:49 | Emergency (ER) | payer MEDICARE ==
[~2020-04-21] VITALS: Ht 182.9 cm; Wt 86.3 kg
[2020-04-21 08:23] VITALS: BP 139/80
[2020-04-21] MEDS ORDERED: IBUP-1007 PO (08:27)
[2020-04-21] MEDS ORDERED: SULF1TAB24 PO (08:27)
--- NOTE | 2020-04-21 08:27 | PHYS DOC ---
Past Medical History Past Medical History: No Pertinent History Additional Past Medical Histor: PATIENT DID NOT STAY LONG ENOUGH TO GET COMPLETE HISTORY Past Surgical History: No Surgical History Additional Past Surgical Histo: unknown Smoking Status: Unknown if ever smoked Alcohol Use: None Drug Use: Methamphetamine General Adult EDM: Chief Complaint: KNEE INJURY HPI: HPI: Patient is a 54 year old male who presents with a 2-day history of right knee pain. Patient denies any trauma to the area. Patient says there is redness associated to the kneecap area. Of note patient is homeless. Patient says the pain is throbbing and moderate in intensity at rest and severe with palpation. Patient denies any fever. Patient also complains of multiple bug bites to the bilateral lower extremities. Review of Systems: Review of Systems: Constitutional: Denies fever or chills. [] Eyes: Denies change in visual acuity. [] HENT: Denies nasal congestion or sore throat. [] Respiratory: Denies cough or shortness of breath. [] Cardiovascular: Denies chest pain or edema. [] GI: Denies abdominal pain, nausea, vomiting, bloody stools or diarrhea. [] : Denies dysuria. [] Musculoskeletal: Denies back pain but has superficial right knee pain Integument: Complains of bites to bilateral lower extremities and redness to the right knee Neurologic: Denies headache, focal weakness or sensory changes. [] Endocrine: Denies polyuria or polydipsia. [] Lymphatic: Denies swollen glands. [] Psychiatric: Denies depression or anxiety. [] Heart Score: Risk Factors: Risk Factors: DM, Current or recent (<one month) smoker, HTN, HLP, family history of CAD, obesity. Risk Scores: Score 0 - 3: 2.5% MACE over next 6 weeks - Discharge Home Score 4 - 6: 20.3% MACE over next 6 weeks - Admit for Clinical Observation Score 7 - 10: 72.7% MACE over next 6 weeks - Early Invasive Strategies Current Medications: Current Medications Medications (Trade) Dose Ordered Sig/Haylee Start Time Stop Time Status Last Admin Dose Admin Ibuprofen (Motrin) 600 mg 1X ONCE 04/21/20 08:30 8 08:31 UNV Trimethoprim/ Sulfamethoxazole (Bactrim Ds) 1 tab 1X ONCE 04/21/20 08:30 04/21/20 08:31 UNV Allergies: Allergies: Allergies Coded Allergies Type Severity Reaction Last Updated Verified Penicillins Allergy Intermediate SEIZURE 06/25/16 Yes Physical Exam: PE: Constitutional: Disheveled alert oriented HENT: Normocephalic, atraumatic, bilateral external ears normal, no trismus, nose normal. [] Eyes: PERRLA, EOMI, conjunctiva normal, no discharge. [] Neck: Normal range of motion, no tenderness, supple, no stridor. [] Cardiovascular:Heart rate regular rhythm, peripheral pulses intact cap refill br isk Lungs & Thorax: Bilateral breath sounds clear, no respiratory distress Abdomen: Not distended, Skin: Multiple bug bites without signs of superinfection of bilateral lower extremities. Back: No tenderness, no CVA tenderness. [] Extremities: Right knee with full range of motion approximately nickel sized superficial abscess on the anterior right knee. Minimal purulent drainage. Minimal surrounding erythema. No joint effusion neurovascular intact distally Neurologic: Alert and oriented X 3, normal motor function, normal sensory function, no focal deficits noted. [] Psychologic: Affect normal, judgement normal, mood normal. [] EKG: EKG: [] Radiology/Procedures: Radiology/Procedures: [] Course & Med Decision Making: Course & Med Decision Making Pertinent Labs and Imaging studies reviewed. (See chart for details) [] 54-year-old male with superficial right knee abscess. The wound is already draining a little bit. I I was able to express a small amount of clots. There is no evidence of joint effusion this appears to be a superficial infection is not represent a septic joint. Will place patient on antibiotics as I did not feel like incision and drainage at this time is warranted. I told the patient if he gets worse he will need to come back for that. Inna Disclaimer: Inna Disclaimer: This electronic medical record was generated, in whole or in part, using a voice recognition dictation system. Departure Departure Impression: Primary Impression: Cutaneous abscess of right knee Disposition: 01 HOME, SELF-CARE Condition: STABLE Referrals: NO PCP (PCP) PCP 2-3 DAYS Patient Instructions: Abscess Additional Instructions: EMERGENCY DEPARTMENT GENERAL DISCHARGE INSTRUCTIONS THANK YOU for coming to [facility] Emergency Department (ED) today and trusting us with your care. We trust that you had a positive experience in our Emergency Department. If you wish to speak to the department Management you can contact the glazing department supervisor at . YOUR FOLLOW UP INSTRUCTIONS ARE FOLLOWS: Do you have a private doctor? If you do not have a private doctor, please ask for a resource list of physicians or clinics that may be able to assist you with follow up care. The Emergency Physician has interpreted your x-rays. The X-ray specialist will also review them. If there is a change in the findings you will be notified in 48 hours when at all possible. A lab test or lab culture may have been done, your results will be reviewed and you will be notified if you need a change in treatment. ADDITIONAL INSTRUCTIONS AND INFORMATION Your care today has been supervised by a physician who is specially trained in emergency care. Many problems require more than one evaluation for a complete diagnosis and treatment. We recommend that you schedule your follow up appointment as recommended to ensure complete treatment of your illness or injury. If you are unable to obtain follow up care and continue to have a problem, or if your condition worsens we recommend that you return to the ED. We are not able to safely determine your condition over the phone nor are we able to give sound medical advice over the phone. For these safety reasons, if you call for medical advice we will ask you to come to the ED for further evaluation If you have any questions regarding these discharge instructions please call the ED at . SAFETY INFORMATION In the interest of safety, wellness, and injury prevention; we encourage you to wear your seatbelt, if you smoke; quit smoking, and we encourage your family to use protective helmet for bicycling and other sporting events that present an increased risk for head injury. IF YOUR SYMPTOMS WORSEN OR NEW SYMPTOMS DEVELOP, OR YOU HAVE CONCERNS ABOUT YOUR CONDITION; OR IF YOUR CONDITION WORSENS WHILE YOU ARE WAITING FOR YOUR FOLLOW UP APPOINTMEN T; EITHER CONTACT YOUR PRIMARY CARE DOCTOR, THE PHYSICIAN WHOSE NAME AND NUMBER YOU WERE GIVEN, OR RETURN TO THE ED IMMEDIATELY. The abscess on your knee is superficial right now. If you notice redness that spreads to encompass the whole knee or you have a fever please return to the ER. Take antibiotics as prescribed. Allow the wound to drain. Scripts Ibuprofen (IBUPROFEN) 600 Mg Tablet 600 MG PO PRN Q6HRS PRN for PAIN, #20 TAB take with food or milk Prov: JONNATHAN ALBARADO MD 8/9/20 Sulfamethoxazole/Trimethoprim (BACTRIM DS TABLET) 1 Each Tablet 1 TAB PO BID for 10 Days, #20 TAB 0 Refills Prov: JONNATHNA ALBARADO MD 04/21/20 Justicifation of Admission Dx: Justifications for Admission: Justification of Admission Dx: N/A JONNATHAN ALBARADO MD Apr 21, 2020 08:27
[2020-04-21] MEDS ORDERED: SMZ/TMP 800/160MG TABLET. PO ONE (08:30)
[2020-04-21] MEDS ORDERED: IBUPROFEN 200 MG TABLET. PO ONE (08:30)
== END 2020-04-21 08:41 | disposition home or self-care (01) ==
LOC: ER 07:49
DX: L02.415 Cutaneous abscess of right lower limb (principal); L53.9 Erythematous condition, unspecified; F13.90 Sedative, hypnotic, or anxiolytic use, unspecified, uncomplicated; Z88.0 Allergy status to penicillin
CPT/HCPCS: 99283

== ENCOUNTER 2020-06-14 21:50 | Emergency (ER) | payer MEDICARE ==
[~2020-06-14 21:50] MED LIST changes: +IBUP-1007 PO
--- NOTE | 2020-06-14 22:15 | PHYS DOC ---
Past Medical History Past Medical History: No Pertinent History Additional Past Medical Histor: PATIENT DID NOT STAY LONG ENOUGH TO GET COMPLETE HISTORY (CIROREAGAN M PENETRATION TESTER) Past Surgical History: No Surgical History Additional Past Surgical Histo: unknown (CIROREAGAN M PENETRATION TESTER) Smoking Status: Unknown if ever smoked Alcohol Use: None Drug Use: Methamphetamine (CIROREAGAN M PENETRATION TESTER) General Adult HPI: HPI: Patient is a 54 year old male who presents with was running from the police when he fell. Patient has superficial hester around his wrists bilaterally from handcuffs. He has a superficial abrasion to the top of his head. Bleeding is controlled. Wounds are cleaned with soap and water. Patient states he does not want to stay in the hospital. Patient states he just wants go home. He is alert and is oriented. He is ambulatory with a steady gait. He is brought in by EMS. He is moving all extremities equally. The police and EMS state that there was no loss of consciousness. Patient denies any back or neck pain. He has full range of motion of his neck. Patient is refusing to let staff do vital signs or take a health history. He denies SI or HI. Patient states he has no pain. Patient is refusing to have any medical examination such as radiology or blood work or EKG done. He is refusing a tetanus shot. (JOLENEREAGAN M PENETRATION TESTER) Review of Systems: Review of Systems: Constitutional: Denies fever or chills. [] Eyes: Denies change in visual acuity. [] HENT: Denies nasal congestion or sore throat. [] Respiratory: Denies cough or shortness of breath. [] Cardiovascular: Denies chest pain or edema. [] GI: Denies abdominal pain, nausea, vomiting, bloody stools or diarrhea. [] : Denies dysuria. [] Musculoskeletal: Denies back pain or joint pain. [] Integument: Denies rash. Scalp abrasion. Abrasion to bilateral wrists from handcuffs. [] Neurologic: Denies headache, focal weakness or sensory changes. [] Endocrine: Denies polyuria or polydipsia. [] Lymphatic: Denies swollen glands. [] Psychiatric: Denies depression or anxiety. [] (REAGAN TANNER PENETRATION TESTER) Heart Score: Risk Factors: Risk Factors: DM, Current or recent (<one month) smoker, HTN, HLP, family history of CAD, obesity. Risk Scores: Score 0 - 3: 2.5% MACE over next 6 weeks - Discharge Home Score 4 - 6: 20.3% MACE over next 6 weeks - Admit for Clinical Observation Score 7 - 10: 72.7% MACE over next 6 weeks - Early Invasive Strategies (REAGAN TANNER APRN) Allergies: Allergies: Allergies Coded Allergies Type Severity Reaction Last Updated Verified Penicillins Allergy Intermediate SEIZURE 06/25/16 Yes (REAGAN TANNER APRN) Physical Exam: PE: Constitutional: Well developed, well nourished, no acute distress, non-toxic appearance. [] HENT: Normocephalic, atraumatic, bilateral external ears normal, oropharynx moist, no oral exudates, nose normal. [] Eyes: PERRLA, EOMI, conjunctiva normal, no discharge. [] Neck: Normal range of motion, no tenderness, supple, no stridor. [] Cardiovascular:Heart rate regular rhythm, no murmur [] Lungs & Thorax: Bilateral breath sounds clear to auscultation [] Abdomen: Bowel sounds normal, soft, no tenderness, no masses, no pulsatile masses. [] Skin: Warm, dry, no erythema, no rash. Bilateral wrist abrasion. Scalp abrasion. [] Back: No tenderness, no CVA tenderness. [] Extremities: No tenderness, no cyanosis, no clubbing, ROM intact, no edema. [] Neurologic: Alert and oriented X 3, normal motor function, normal sensory function, no focal deficits noted. [] Psychologic: Affect normal, judgement normal, mood normal. [] (REAGAN TANNER APRN) EKG: EKG: [] (REAGAN TANNER APRN) Radiology/Procedures: Radiology/Procedures: [] (REAGAN TANNER APRN) Course & Med Decision Making: Course & Med Decision Making Pertinent Labs and Imaging studies reviewed. (See chart for details) See HPI. Alert and oriented x4. Ambulatory with steady gait. Bleeding is controlled. Patient signing out AMA. No extremity or joint deformities or swelling. PERRLA. No vision impairment patient denies any vision changes. He denies any numbness or tingling, chest pain, shortness of air, abdominal pain, nausea, vomiting, diarrhea, focal weakness. Patient refusing all care. [] (REAGAN TANNER APRN) Course & Med Decision Making I have personally interviewed and examined patient. All charts, labs and imaging studies were reviewed. I agreed with the PA/CHIEF SCIENTIST's findings, exam and plan of care Patient is loud but appears oriented and refuses treatment. Patient has no respiratory distress and is able to walk with minimal assist. Patient signed out AMA (JONNATHAN ALBARADO MD) Dragon Disclaimer: Dragon Disclaimer: This electronic medical record was generated, in whole or in part, using a voice recognition dictation system. (REAGAN TANNER APRN) Departure Departure Impression: Primary Impression: Scalp abrasion Qualified Codes: S00.01XA - Abrasion of scalp, initial encounter Additional Impressions: Abrasion of wrist Qualified Codes: S60.819A - Abrasion of unspecified wrist, initial encounter Left against medical advice Disposition: 07 AGAINST MEDICAL ADVICE Condition: STABLE Referrals: NO PCP (PCP) REAGAN TANNER APRN Jun 14, 2020 22:15 JONNATHAN ALBARADO MD Jun 14, 2020 23:36
== END 2020-06-14 22:16 | disposition left against medical advice (07) ==
LOC: ER 21:50
DX: S00.01XA Abrasion of scalp, initial encounter (principal); S60.812A Abrasion of left wrist, initial encounter; S60.811A Abrasion of right wrist, initial encounter; Z88.0 Allergy status to penicillin; W18.39XA Other fall on same level, initial encounter; Y93.02 Activity, running; Y92.89 Other specified places as the place of occurrence of the external cause; Y99.8 Other external cause status
CPT/HCPCS: 99283

== ENCOUNTER 2020-08-24 17:59 | Emergency (ER) | payer MEDICARE ==
[~2020-08-24 17:59] MED LIST changes: -RISP1TAB3 PO; +RISP1TAB88 PO
== END 2020-08-24 18:00 | disposition left against medical advice (07) ==
LOC: ER 17:59
DX: R05 Cough (principal); Z53.21 Procedure and treatment not carried out due to patient leaving prior to being seen by health care provider

== ENCOUNTER 2020-10-11 17:01 | Emergency (ER) | payer MEDICARE ==
[~2020-10-11] VITALS: Ht 185.4 cm; Wt 81.8 kg
[2020-10-11 17:08] VITALS: BP 160/79
[2020-10-11] MEDS ORDERED: METH4TAB2 PO (17:26)
[2020-10-11] MEDS: DEXAMETHASONE 4 MG TABLET PO SCH ×2 (17:31→17:38)
--- NOTE | 2020-10-11 17:31 | PHYS DOC ---
Past Medical History Past Medical History: No Pertinent History Additional Past Medical Histor: PATIENT DID NOT STAY LONG ENOUGH TO GET COMPLETE HISTORY Past Surgical History: No Surgical History Additional Past Surgical Histo: unknown Smoking Status: Current Every Day Smoker Alcohol Use: Heavy Drug Use: Methamphetamine General Adult EDM: Chief Complaint: HAND PROBLEM HPI: HPI: 55 yo homeless male, presents to the ED brought in by EMS with complaints of painful burning of both hands and feet stating, and need to be checked out." Patient reports his hands have been swollen red for months-has no gloves. Denies any IV drug use, fevers, spreading rash or decreased range of motion. Review of Systems: Review of Systems: Constitutional: Denies fever or chills. [] Eyes: Denies change in visual acuity. [] HENT: Denies nasal congestion or sore throat. [] Respiratory: Denies cough or shortness of breath. [] Cardiovascular: Denies chest pain or edema. [] GI: Denies abdominal pain, nausea, vomiting, bloody stools or diarrhea. [] : Denies dysuria or hematuria Musculoskeletal: Denies back pain or joint pain. [] Integument: Denies rash or diaphoresis Neurologic: Denies headache, focal weakness or sensory changes. [] Endocrine: Denies polyuria or polydipsia. [] Lymphatic: Denies swollen glands. [] Psychiatric: Denies depression or anxiety. [] Heart Score: Risk Factors: Risk Factors: DM, Current or recent (<one month) smoker, HTN, HLP, family history of CAD, obesity. Risk Scores: Score 0 - 3: 2.5% MACE over next 6 weeks - Discharge Home Score 4 - 6: 20.3% MACE over next 6 weeks - Admit for Clinical Observation Score 7 - 10: 72.7% MACE over next 6 weeks - Early Invasive Strategies Allergies: Allergies: Allergies Coded Allergies Type Severity Reaction Last Updated Verified Penicillins Allergy Intermediate SEIZURE 06/25/16 Yes Physical Exam: PE: Constitutional: no acute distress, afebrile, unkept disheveled appearance HENT: Normocephalic, atraumatic, no signs of head trauma Eyes: EOMI, conjunctiva normal, no discharge. Neck: Normal range of motion, supple, Cardiovascular: S1/2 present, regular rhythm Lungs & Thorax: Speaking in full sentences, bilateral equal chest rise, no tachypnea or increased work of breathing Abdomen: soft, no tenderness, Skin: Warm, dry, no erythema, no rash, both hands with significant direct-are swollen and red-chronic findings of frequent cold exposure with rewarming, consistent with chilblains or pernio, hands are much worse than patient's feet, patient with equal radial, dorsalis pedis and posterior tibialis pulses, patient with normal cap refill, Extremities: no cyanosis, no decreased rom Neurologic: Alert and oriented X 3, normal motor function, normal sensory function, no focal deficits noted. [] Psychologic: Affect normal, judgement normal, mood normal. [] Current Patient Data: Vital Signs: Vital Signs Date Time Temp Pulse Resp B/P (MAP) Pulse Ox O2 Delivery O2 Flow Rate FiO2 10/11/20 17:08 98.3 86 20 160/79 (106) 99 Room Air 98.3 EKG: EKG: [] Radiology/Procedures: Radiology/Procedures: [] Course & Med Decision Making: Course & Med Decision Making Pertinent Labs and Imaging studies reviewed. (See chart for details) Physical exam consistent with chilblains of both hands and feet due to repeat cold exposure. Patient has very thick socks and supportive shoes but no gloves for his hands. I discouraged cold exposure and encouraged group home use to frevent further injury, potential frostbite. Will discharge home with strict ED return precautions were given for severe pain, skin color changes neurologic deficits. Encouraged urgent outpatient follow-up with PMD and wound care center. Life-threatening processes were considered but are low suspicion at this time, given history, physical exam and ED workup. Pt was educated on all prescription medications and adverse effects. All patient's questions were answered and pt was stable at time of discharge. Life/limb-threatening differential includes but is not limited to, trauma (fracture, dislocation, laceration, compartment syndrome, tendon or ligament injury), neurovascular injury or deficit, infection (osteomyelitis, abscess, cellulitis, septic arthritis, necrotizing fasciitis), deep vein thrombosis, renal/cardiac/liver disease, medication adverse effect, lymphedema/anasarca, vascular insufficiency or malignancy, I spoken with the patient and her caregivers. I explained the patient's condition, diagnoses and treatment plan based on the information available to me at this time. I have answered the patient and her caregiver's questions and addressed any concerns. The patient and her caregivers have a good understanding of patient's diagnosis, condition and treatment plan as can be expected at this point. Vital signs have been stable. Patient's condition is stable and appropriate for discharge from the emergency department. Patient will pursue further outpatient evaluation with primary care physician or other designated or consulting physician as outlined in the discharge instructions. The patient and/or caregivers are agreeable to this plan of care and follow-up instructions have been explained in detail. The patient and/or caregivers have received these instructions in written form and have expressed an understanding of the discharge instructions. The patient and/or caregivers are aware that any significant change of condition or worsening of symptoms should prompt immediate return to this or the closest emergency department [facility] Disclaimer: Inna Disclaimer: This electronic medical record was generated, in whole or in part, using a voice recognition dictation system. Departure Departure Impression: Primary Impression: Chilblains Disposition: 01 DC HOME SELF CARE/HOMELESS Condition: STABLE Referrals: NO PCP (PCP) FOLLOW UP WITH FAMILY MEDICINE: Family Medicine Address: [address] [place] [address] Patient Instructions: [place] Additional Instructions: FOLLOW UP WITH WOUND CARE: [facility] Address: [address], [address] [place] [address] EMERGENCY DEPARTMENT GENERAL DISCHARGE INSTRUCTIONS Thank you for coming to [facility] Emergency Department (ED) today and trusting us with you care. We trust that you had a positive experience in our Emergency Department. If you wish to speak to the department management, you may call the Director at [phone]. YOUR FOLLOW UP INSTRUCTIONS ARE FOLLOWS: 1. Do you have a private Doctor? If you do not have a private doctor, please ask for a resource list of physicians or clinics that may be able to assist you with follow up care. 2. The Emergency Physicain has interpreted your x-rays. The X-Ray specialist will also review them. If there is a change in the findings, you will be notified in 48 hours when at all possible. 3. A lab test or culture has been done, your results will be reviewed and you will be notified if you need a change in treatment. ADDITIONAL INSTRUCTIONS AND INFORMATION: 1. Your care today has been supervised by a physician who is specially trained in emergency care. Many problems require more than one evaluation for a complete diagnosis and treatment. We recommend that you schedule your follow up appointment as recommended to ensure complete treatment of you illness or injury. If you are unable to obtain follow up care and continue to have a problem, or if your condition worsens, we recommend that you return to the ED. 2. We are not able to safely determine your condition over the phone nor are we able to give sound medical advice over the phone. For these safety reasons, if you call for medical advice we will ask you to come to the ED for further evaluation. 3. If you have any questions regarding these discharge instructions please call the ED at [phone]. SAFETY INFORMATION: In the interest of safety, wellness, and injury prevention; we encourage you to wear your sealbelt, if you smoke; quite smoking, and we encourage family to use a protective helmet for bicycling and other sporting events that present an increased risk for head injury. IF YOUR SYMPTOMS WORSEN OR NEW SYMPTOMS DEVELOP, OR YOU HAVE CONCERNS ABOUT YOUR CONDITION; OR IF YOUR CONDITION WORSENS WHILE YOU ARE WAITING FOR YOUR FOLLOW UP APPOINTMENT; EITHER CONTACT YOUR PRIMARY CARE DOCTOR, THE PHYSICIAN WHOSE NAME AND NUMBER YOU WERE GIVEN, OR RETURN TO THE ED IMMEDIATELY. Scripts Methylprednisolone (MEDROL) 4 Mg Tab.ds.pk 1 PKG PO UD for inflammation, #1 PKG Prov: CLYDE LOPEZ DO 10/11/20 CLYDE LOPEZ DO Oct 11, 2020 17:31
== END 2020-10-11 17:51 | disposition home or self-care (01) ==
LOC: ER 17:01
DX: T69.1XXA Chilblains, initial encounter (principal); F17.200 Nicotine dependence, unspecified, uncomplicated; F19.90 Other psychoactive substance use, unspecified, uncomplicated; F10.10 Alcohol abuse, uncomplicated; Z88.0 Allergy status to penicillin
CPT/HCPCS: 99283

== ENCOUNTER 2021-02-16 08:45 | Emergency (ER) | payer MEDICARE ==
[~2021-02-16 08:45] MED LIST changes: +METH4TAB2 PO
== END 2021-02-16 08:55 | disposition left against medical advice (07) ==
LOC: ER 08:52
DX: M25.539 Pain in unspecified wrist (principal); Z53.21 Procedure and treatment not carried out due to patient leaving prior to being seen by health care provider